=== PATIENT | male | born 1985 | race Asian ===

== ENCOUNTER 2019-09-14 15:18 | Emergency (ER) | payer OTHER, SELFPAY ==
[~2019-09-14] VITALS: Ht 185.4 cm; Wt 82.6 kg
[2019-09-14 15:36] VITALS: BP 135/96; Ht 185.4 cm; Wt 82.6 kg
== END 2019-09-14 17:14 | disposition home or self-care (01) ==
LOC: ED 15:18
DX: Z20.828 Contact with and (suspected) exposure to other viral communicable diseases (principal)

== ENCOUNTER → 2019-10-02 | Outpatient (REF) | END | disposition home or self-care (01) | LOC: LB 14:50 | DX: U07.1 COVID-19 (principal) ==

== ENCOUNTER → 2019-10-03 | Outpatient (REF) | END | disposition home or self-care (01) | LOC: LB 15:06 | DX: U07.1 COVID-19 (principal) ==